=== PATIENT | female | born 1970 | race American Indian/Alaskan Native ===

== ENCOUNTER 2023-11-20 15:47 | Emergency (ER) | payer OTHER ==
[~2023-11-20] VITALS: Ht 165.1 cm; Wt 93.3 kg
[2023-11-20] MEDS ORDERED: GABAPENTIN100 MG PO (15:51)
[2023-11-20 16:11] LABS: EOSINOPHILS 1.9 % (0-6); HEMATOCRIT 42.8 % (35.0-50.0); HEMOGLOBIN 14.1 g/dL (12.0-18.0); LYMPHOCYTES 36.5 % (24-44); MCH 31.2 (27-36); MCHC 32.8 g/dl (30-36); MCV 94.9 fl (81-99); MONOCYTES 6.8 % (0-12); NEUTROPHILS 53.8 % (39-80); PLATELET COUNT 307 K/uL (140-440); RBC 4.51 M/ul (4.3-5.7); RDW 16.1 (10.5-15.0)
[2023-11-20] MEDS ORDERED: HYDROmorphone HCL 1 MG/ML SYR IV PRN (16:15)
[2023-11-20] MEDS ORDERED: ondansetron HCL 4 MG/2 ML VIAL IV ONE (16:15)
[2023-11-20 16:32] LABS: ALBUMIN 3.1 g/dL (3.4-5.0); ALBUMIN/GLOBULIN RATIO 0.62 (1.1-2.4); ANION GAP 13.8 (7-21); BILIRUBIN, TOTAL 0.5 ng/dL (0.2-1.0); BUN/CREATININE RATIO 2.89 (6.0-28.6); CALCIUM 8.1 mg/dL (8.5-10.1); CREATININE, SERUM 0.69 mg/dL (0.55-1.02); POTASSIUM 2.8 mmol/L (3.5-5.1); PROTEIN, TOTAL 8.1 g/dL (6.4-8.2)
[2023-11-20] MEDS ORDERED: POTASSIUM CHLORIDE 20 MEQ/15 ML CUP PO ONE (16:45)
[2023-11-20 18:58] LABS: BILIRUBIN, URINE NEGATIVE (negative); BLOOD/HGB, URINE LARGE (Negative); KETONE, URINE NEGATIVE (Negative); LEUK ESTERASE, URINE MODERATE (negative); NITRITE, URINE NEGATIVE (negative); PH, URINE 7.5 (5-7)
[2023-11-20 19:05] LABS: BACTERIA, URINE 1+ /hpf (negative); CASTS, URINE NONE SEEN \\lpf; COLLECTION TYPE, URINE CLEAN CATCH; CRYSTALS, URINE NONE SEEN (0-1+); EPITHELIAL CELLS, URINE SQUAMOUS 1+ /lpf (0-1+); REFLEX CULTURE, URINE Yes (No); WHITE BLOOD CELLS, URINE 41-50 /HPF (0-5)
[2023-11-20] MEDS ORDERED: CEFTRIAXONE/SODIUM CHLORIDE 2 GM/100 ML PIGGYBACK IV ONE (19:15)
[2023-11-20] MEDS ORDERED: CEFDINIR300 MG PO (19:17)
== END 2023-11-20 20:06 | disposition home or self-care (01) ==
LOC: ED 15:47
PROVIDERS: Emergency Medicine
DX: N39.0 Urinary tract infection, site not specified (principal)
CPT/HCPCS: 36415; 74177; 80053; 81001; 83690; 85025; 96375; 99284-25; A9270; G0480; J0696; J1170; J2405; Q9967